=== PATIENT | female | born 2005 | race Two or more races ===

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

== ENCOUNTER 2025-05-09 12:07 | Emergency (ER) | payer MEDICAID ==
[~2025-05-09] VITALS: Ht 162.6 cm; Wt 56.8 kg
[~2025-05-09 12:07] MED LIST changes: +NITR-87 PO
--- NOTE | 2025-05-09 13:15 | ED.PDOC ---
Musculoskeletal HPI Comments 19-YEAR-OLD FEMALE WITH PMHx SCOLIOSIS PRESENTS WITH A CHIEF COMPLAINT OF RIGHT SCAPULA PAIN S/P FALL. PATIENT STATES THAT SHE WAS AT SCHOOL AND WAS WALKING, WHEN SHE HAD A MECHANICAL FALL AND LANDED ON TOP OF HER BILATERAL KNEES AND THEN FELL ONTO HER RIGHT SHOULDER. PATIENT DENIES HITTING HER HEAD OR LOSING CONSCIOUSNESS. PATIENT IS COMPLAINING OF RIGHT SIDED PAIN TO HER SCAPULA AREA. PATIENT IS ABLE TO AMBULATE WITH STEADY GAIT. Chief Complaint: Upper Extremity Time Seen by MD: 13:00 Primary Care Provider: UNKNOWN Reviewed Notes: Medications, Allergies Allergies: Coded Allergies: NO KNOWN ALLERGIES (Unverified , 12/26/12) Home Meds Active Scripts Naproxen (Naproxen) 500 Mg Tab, 500 MG PO BID, #30 TAB Prov:YUMIKO VARGHESE 05/09/25 Nitrofurantoin Monohydrate Mac (Macrobid) 100 Mg Cap, 100 MG PO BID, #14 CAP Prov:MALIK AVALOS MD 08/15/24 Reported Medications [Hydrocortisone5 Mg] (Hydrocortisone) 5 MG TAB No Conflict Check, MG 12/26/12 Information Source: Patient Mode of Arrival: Ambulatory Location: Right Extremity Location: Shoulder Timing: Days Prehospital treatment: None Severity: Moderate Able to Move Extremity: Yes Bear Weight: Fully Pain: Moderate Hand Dominance: Right Circumstances: Fall, Accident Symptoms: Pain DVT Risk Factors: NONE Last Tetanus: Unknown Associated signs and symptoms: Shoulder pain Past Medical History Past Medical History (Other): SCOLIOSIS Surgical History: Denies all surgeries MEDICAL BILLING ASSISTANT History: Denies all MEDICAL BILLING ASSISTANT Hx Family History Family History: Reviewed,noncontributory to illness Social History Smoker: Non-Smoker Alcohol: Denies ETOH Use Drugs: Denies Drug Use Lives In: Home Constitutional: denies: chills, diaphoresis, fatigue, fever, malaise, sweats, weakness, others EENTM: denies: blurred vision, double vision, ear bleeding, ear discharge, ear drainage, ear pain, ear ringing, eye pain, eye redness, hearing loss, mouth pain, mouth swelling, nasal discharge, nose bleeding, nose congestion, nose pain, photophobia, tearing, throat pain, throat swelling, voice changes, others Respiratory: denies: cough, hemoptysis, orthopnea, SOB at rest, shortness of breath, SOB with excertion, stridor, wheezing, others Cardiovascular: denies: chest pain, dizzy spells, diaphoresis, Dyspnea on exertion, edema, irregular heart beat, left arm pain, lightheadedness, palpitations, PND, syncope, others Gastrointestinal: denies: abdomen distended, abdominal pain, blood streaked bowels, constipated, diarrhea, dysphagia, difficulty swallowing, hematemesis, melena, nausea, poor appetite, poor fluid intake, rectal bleeding, rectal pain, vomiting, others Genitourinary: denies: abnormal vagina bleeding, burning, dyspareunia, dysuria, flank pain, frequency, hematuria, incontinence, pain, , vagina discharge, urgency, others Neurological: denies: dizziness, fainting, headache, left sided numbness, left sided weakness, numbness, paresthesia, pre-existing deficit, right sided numbness, right sided weakness, seizure, speech problems, tingling, tremors, weakness, others Musculoskeletal: reports: joint pain, muscle pain; denies: back pain, gout, joint swelling, muscle stiffness, neck pain, others Integumetry: reports: bruises (BILATERIAL KNEE. ); denies: change in color, change in hair/nails, dryness, laceration, lesions, lumps, rash, wounds, others Allergic/Immunocompromised: denies: Difficulty Healing, Frequent Infections, Hives, Itching, others Hematologic/Lymphatic: denies: anemia, blood clots, easy bleeding, easy bruising, swollen glands, others Endocrine: denies: excessive hunger, excessive sweating, excessive thirst, excessive urination, flushing, intolerance to cold, intolerance to heat, unexplained weight gain, unexplained weight loss, others Psychiatric: denies: anxiety, bipolar disorder, depression, hopeless, panic disorder, schizophrenia, sleepless, suicidal, others All Other Systems: Reviewed and Negative Physical Exam General Appearance: No Apparent Distress, Normal HEENT: Normal ENT Inspection, PERRL/EOMI, Pharynx Normal, TMs Normal Neck: Full Range of Motion, Non-Tender, Normal, Normal Inspection Respiratory: Chest Non-Tender, Lungs Clear, No Accessory Muscle Use, No Respiratory Distress, Normal Breath Sounds Cardiovascular: No Edema, No JVD, No Murmur, No Gallop, Normal Peripheral Pulses, Regular Rate/Rhythm Breast Exam: Deferred Gastrointestinal: No Organomegaly, Non Tender, No Pulsatile Mass, Normal Bowel Sounds, Soft Genitalia: Deferred Pelvic: Deferred Rectal: Deferred Extremities: No calf tenderness, Normal capillary refill, Normal range of motion, No pedal edema, Tender (ON RIGHT POSTERIOR SHOULDER, NO BONY TENDERNESS, SWELLING AND DEFORMITY. ) Musculoskeletal : Apperance: Normal Neurologic: Alert, outpatient physical therapist II-XII nml as Tested, No Motor Deficits, Normal Affect, Normal Mood, No Sensory Deficits Cerebellar Function: Normal Reflexes: Normal Skin: Bruises (ON BILATERAL ANTERIOR KNEE, NO BONY TENDERNESS, SWELLING AND DEFORMITY. ), Dry, Normal Color, Warm Peripheral Pulses: 2+ carotid (R), 2+ carotid (L), 2+ dorsalis pedis (R), 2+ dorsalis pedis (L) Lymphatic: No Adenopathy Was a procedure done? Was a procedure done?: No Differential Diagnosis EXT Differential Diagnosis: Fracture, Sprain, Contusion, Strain X-Ray, Labs, Meds, VS Vital Signs Date Time Temp Pulse Resp B/P (MAP) Pulse Ox O2 Delivery O2 Flow Rate FiO2 05/09/25 12:08 97.8 91 16 100/58 97 97.8 PATIENT: JOSSIE WONGACCT: [id number] UNIT: [id number] : 2005 LOC: ER ROOM / BED: / AGE / SEX: 19 / F ADM STATUS: REG ER SERVICE 1254 ORDERING PHYSICIAN: YUMIKO VARGHESE PROCEDURE(s): RSCAP - R SCAPULA COMPLETE XRAY REASON: FALL ORDER NUMBER(s): [id number], ACCESSION NUMBER(s): [id number] EXAM: XY R SCAPULA COMPLETE XRAY HISTORY: FALL COMPARISON: None TECHNIQUE: Four views of the right scapula were performed. FINDINGS: No acute fracture or dislocation are identified in the right scapula. No significant degenerative changes or loss of subacromial space. IMPRESSION: 1. No acute fracture or dislocation. ATED BY: CLINT TRUJILLO MD DICTATED DATE/TIME: 05/09/25 133 SIGNED BY: CLINT TRUJILLO MD SIGNED DATE/TIME: 05/09/25 1332 CC: X-Ray, Labs, Meds, VS Comment EXTERNAL MEDICAL RECORDS REVIEWED: [NONE] INDEPENDENT HISTORIANS: [NONE] SOCIAL DETERMINANTS OF HEALTH: [NONE] LABS ORDERED: NONE REVIEWED AND INTERPRETED RESULTS: NONE IMAGING ORDERED: R SCAPULA X-RAY TREATMENTS ORDERED: PROCEDURES PERFORMED: NONE CRITICAL CARE TIME: NONE I HAVE DISCUSSED THE PATIENT WITH THE ATTENDING PHYSICIAN, DR. CARLOS ENRIQUE TOBIAS, AND SHE AGREES WITH THE PATIENT'S PLAN OF CARE AND DISPOSITION. BASED ON HISTORY OF PRESENT ILLNESS, AND PHYSICAL EXAM, PATIENT WILL BE DISCHARGED HOME. DISCUSSED PLAN FOR DISCHARGE HOME WITH RX [NAPROXEN 500MG]. MEDICATION WARNINGS GIVEN. SHARED DECISION MAKING: DISCUSSED WITH PATIENT THAT THEIR WORKUP WAS NORMAL. PATIENT INSTRUCTED TO FOLLOW UP WITH PRIMARY CARE PROVIDER IN 1-2 DAYS FOR RE- EVALUATION OF SYMPTOMS. PATIENT VERBALIZES UNDERSTANDING TO RETURN TO ED FOR NEW OR WORSENING SYMPTOMS OR IF FOLLOW UP WITH PCP CANNOT BE OBTAINED. PATIENT FEELS COMFORTABLE GOING HOME AT THIS TIME. ALL QUESTIONS ADDRESSED AT TIME OF DISCHARGE. Time of 1ST Reevaluation: 13:48 Reevaluation 1ST: Improved Patient Education/Counseling: Diagnosis, Treatment, Need For Follow Up Family Education/Counseling: Diagnosis, Treatment, Need For Follow Up Medical Screening: No EMC Exist At This Time Departure 1 Departure Time of Disposition: 13:48 Impression: Primary Impression: Strain of right shoulder Qualified Codes: S46.911A - Strain of unspecified muscle, fascia and tendon at shoulder and upper arm level, right arm, initial encounter Additional Impression: Contusion of knee Qualified Codes: S80.00XA - Contusion of unspecified knee, initial encounter Disposition: HOME / SELF CARE / HOMELESS Condition: Stable Additional Instructions: FOLLOW-UP WITH PCP IN 1 TO 2 DAYS. TAKE MEDICATIONS PRESCRIBED. RETURN TO ED FOR ANY NEW OR WORSENING SYMPTOMS. e-Prescriptions Naproxen (Naproxen) 500 Mg Tab 500 MG PO BID, #30 TAB Prov: YUMIKO VARGHESE 05/09/25 Discharged With: Self, Relative (Mother), Legal Guardian Critical Care Note Critical Care Time?: No Stability Stability form required: No Heart Score Heart Score: Heart Score Response (Comments) Value History N/A 0 EKG N/A 0 Age N/A 0 Risk Factors N/A 0 Troponin N/A 0 Total 0 I personally scribed for YUMIKO VARGHESE ([email or web address]) on 05/09/25 at 13:15. Electronically submitted by Oleg Faith ([email or web address]). I personally scribed for YUMIKO VARGHESE ([email or web address]) on 05/09/25 at 13:45. Electronically submitted by Oleg Faith ([email or web address]). YUMIKO VARGHESE May 09, 2025 13:15
--- NOTE | 2025-05-09 13:34 | DVH ---
EXAM: XY R SCAPULA COMPLETE XRAY HISTORY: FALL COMPARISON: None TECHNIQUE: Four views of the right scapula were performed. FINDINGS: No acute fracture or dislocation are identified in the right scapula. No significant degenerative ch anges or loss of subacromial space. IMPRESSION: 1. No acute fracture or dislocation.
[2025-05-09] MEDS ORDERED: NAPR-746 PO (13:45)
[2025-05-09 13:50] VITALS: BP 100/58; PULSE 91; RESP 16; TEMP 97.8; O2SAT 97
== END 2025-05-09 13:52 | disposition home or self-care (01) ==
LOC: ER 12:07
DX: S46.911A Strain of unspecified muscle, fascia and tendon at shoulder and upper arm level, right arm, initial encounter (principal); S80.02XA Contusion of left knee, initial encounter; S80.01XA Contusion of right knee, initial encounter; M41.9 Scoliosis, unspecified; Z79.899 Other long term (current) drug therapy; W18.39XA Other fall on same level, initial encounter; Y93.01 Activity, walking, marching and hiking; Y92.89 Other specified places as the place of occurrence of the external cause; Y99.8 Other external cause status
CPT/HCPCS: 73010